=== PATIENT | male | born 1955 | race Caucasian/White ===

== ENCOUNTER → 2017-09-17 | Outpatient (CLI) | payer BC ==
[~2017-09-17] VITALS: Ht 177.8 cm; Wt 88.5 kg
[~2017-09-17] MED LIST: ASPI-586 PO; CHOL200059 PO; FISH1CAP15 PO; REGADENOSON 0.4 MG/5 ML SYR (LEXISCAN) IV ONE
[2017-09-17] MEDS: CATHETER FLUSH 10 ML SYR IV SCH ×2 (08:36→09:51)
[2017-09-17 09:50] VITALS: BP 156/80
--- NOTE | 2017-09-17 13:28 | STRESS TEST ---
DATE OF SERVICE: 09/17/2017 LEXISCAN MYOVIEW STRESS TEST REPORT REFERRING PHYSICIAN: Dr. Carl Harp. Baseline heart rate is 56. Baseline blood pressure 147/79. Baseline EKG is sinus rhythm with no ischemic changes. In summary, the patient was injected with 10.82 mCi of technetium-99 Myoview and the resting images were obtained. Then, the patient received 0.4 mg of Lexiscan followed by 29.8 mCi of technetium-99 Myoview. Throughout the test, there were no EKG changes. The resting and stress images were reviewed and compared in the short axis, horizontal long axis, and vertical long axis views. Review of the images showed diaphragmatic attenuation with no significant ischemia or infarction on SPECT images. SSS is 2, SDS 1, TID value 0.9. On the gated images, the left ventricle appeared to be in normal size with diffuse left ventricular hypokinesia, more pronounced at the inferior wall and inferior septum. Calculated ejection fraction 38%. CONCLUSION: 1. The patient tolerated Lexiscan well. 2. Diaphragmatic attenuation affecting the quality of the images with no significant ischemia or infarction on SPECT images. 3. Normal left ventricular size with mild diffuse left ventricular hypokinesia, more pronounced at the inferior wall and inferoseptum. Calculated ejection fraction 38%. Job ID: [id number] DocumentID: [id number] Dictated Date: 09/17/2017 12:40:35 [employer] Date: 09/17/2017 13:27:50 Dictated By: ALECIA LANTIGUA MD
== END ==
LOC: CARD 08:03
DX: Z82.49 Family history of ischemic heart disease and other diseases of the circulatory system (principal)
CPT/HCPCS: 78452; 93017

== ENCOUNTER 2017-09-19 11:00 | Outpatient (CLI) | payer BC ==
[~2017-09-19] VITALS: Ht 177.8 cm; Wt 88.5 kg
[~2017-09-19 11:00] MED LIST changes: -REGADENOSON 0.4 MG/5 ML SYR (LEXISCAN) IV ONE
== END 2017-09-19 11:04 | disposition home or self-care (01) ==
LOC: PREOP 11:00
PROVIDERS: ATTEND Surgery
DX: Z01.818 Encounter for other preprocedural examination (principal)

== ENCOUNTER → 2018-04-30 | Outpatient (CLI) | payer BC ==
[~2018-04-30] MED LIST changes: +PANT40TA3 PO
== END ==
LOC: CARD 08:48
DX: R93.1 Abnormal findings on diagnostic imaging of heart and coronary circulation (principal)
CPT/HCPCS: 93306

== ENCOUNTER → 2021-10-12 | Outpatient (CLI) | payer BC ==
[~2021-10-12] MED LIST changes: +CATHETER FLUSH 10 ML SYR IV PRN; +HOLD METFORMIN - RECEIVED CONTRAST 20 ML VIAL IV SCH; +IOHEXOL 350 MG/ML 100 ML (OMNIPAQUE 350) VIAL IV ONE; +NS 100 ML (IVPB) BAG IV ONE; -PANT40TA3 PO; +PANT40TA52 PO
--- NOTE | 2021-10-12 13:23 | Diagnostic Imaging Report ---
EXAMINATION: CT chest with intravenous contrast. TECHNIQUE: Multiple contiguous axial images were obtained through the chest after the uneventful administration of intravenous contrast. All CT scans use one or more of the following dose optimizing techniques: automated exposure control, MA and/or KvP adjustment based on patient size and exam type or iterative reconstruction. HISTORY: Pneumonia COMPARISON: None available. FINDINGS: There is no edema or pneumonia. No pleural effusion. No pneumothorax. No suspicious nodules. Left hemidiaphragm is elevated and there is mild overlying atelectasis. There is no axillary or supraclavicular lymphadenopathy. There is no mediastinal lymphadenopathy. Heart size is normal. There are no coronary artery calcifications. No pericardial effusion. Aorta is normal in caliber. Limited views of the upper abdomen are unremarkable. There are no suspicious osseus lesions. IMPRESSION: 1. Elevated left hemidiaphragm with overlying atelectasis. Dictated by: Dictated on workstation # [id number]
== END ==
LOC: RAD 10-11 08:29
PROVIDERS: ATTEND Family Medicine
DX: Z00.01 Encounter for general adult medical examination with abnormal findings (principal); J18.9 Pneumonia, unspecified organism; J98.11 Atelectasis; Z68.29 Body mass index [BMI] 29.0-29.9, adult; Y92.73 Farm field as the place of occurrence of the external cause; G47.00 Insomnia, unspecified
CPT/HCPCS: 71260